=== PATIENT | male | born 1975 | race Asian ===

== ENCOUNTER 2018-04-08 14:24 | Emergency (ER) | payer MEDICAID ==
[~2018-04-08] VITALS: Ht 177.8 cm; Wt 82.0 kg
[2018-04-08 16:49] LABS: CLARITY URINE CLEAR (CLEAR); COLOR URINE YELLOW (YELLOW); KETONES URINE TRACE (NEGATIVE); LEUKOCYTE ESTERASE URINE NEGATIVE (NEGATIVE); NITRITE URINE NEGATIVE (NEGATIVE); OCCULT BLOOD URINE 2+ (NEGATIVE); PROTEIN URINE NEGATIVE (NEGATIVE); SPECIFIC GRAVITY URINE 1.028 (1.005-1.030)
[2018-04-08 19:14] VITALS: BP 134/88
[2018-04-08] MEDS ORDERED: ACETAMINOPHEN 325MG TABLET PO ONE (19:45)
[2018-04-10 07:19] LABS: HIV SCREEN 4G Non Reactive (Non Reactive)
[2018-04-11 04:16] LABS: CHLAMYDIA TRACHOMATIS NAA Negative (Negative); NEISSERIA GONORRHOEAE NAA Negative (Negative)
== END 2018-04-08 20:30 | disposition home or self-care (01) ==
LOC: ER 19:14
DX: M25.561 Pain in right knee (principal); Z20.2 Contact with and (suspected) exposure to infections with a predominantly sexual mode of transmission; R03.0 Elevated blood-pressure reading, without diagnosis of hypertension; M65.861 Other synovitis and tenosynovitis, right lower leg; R81 Glycosuria; W51.XXXA Accidental striking against or bumped into by another person, initial encounter; Y93.66 Activity, soccer; Y92.89 Other specified places as the place of occurrence of the external cause
CPT/HCPCS: 73562; 81003; 86592; 87389; 87491; 87591; 99285; L1830